=== PATIENT | male | born 1950 | race African-American/Black ===

== ENCOUNTER 2016-08-02 09:14 | Emergency (ER) | payer OTHER ==
[~2016-08-02] VITALS: Ht 175.3 cm; Wt 81.7 kg
[~2016-08-02 09:14] MED LIST: AVALIDE 300-121 EACH PO; FISH OIL 1,0001 EAC5 PO; JANUMET 50-1,01 EACH PO; KEFLEX500 MG PO; NORCO 5-325 TA1 EACH PO; PRAVASTATIN SOD20 MG PO; [UNRECOGNIZED DRUG - OTHER] SUBQ
[2016-08-02 09:15] VITALS: BP 144/85
[2016-08-02] MEDS ORDERED: NAPROSYN500 MG PO (09:41)
[2016-08-02] MEDS ORDERED: COLCHICINE0.6 MG PO (09:41)
[2016-08-02] MEDS ORDERED: INDOMETHACIN 5050 M1 PO (09:54)
== END 2016-08-02 09:59 | disposition home or self-care (01) ==
LOC: ER 09:14
DX: M10.9 Gout, unspecified (principal); R60.9 Edema, unspecified; F10.99 Alcohol use, unspecified with unspecified alcohol-induced disorder; I10 Essential (primary) hypertension; E78.00 Pure hypercholesterolemia, unspecified; E11.9 Type 2 diabetes mellitus without complications

== ENCOUNTER 2017-05-22 23:00 | Emergency (ER) | payer OTHER ==
[~2017-05-22] VITALS: Ht 175.3 cm; Wt 86.2 kg
[~2017-05-22 23:00] MED LIST changes: +COLCHICINE0.6 MG PO; +INDOMETHACIN 5050 M1 PO; +NAPROSYN500 MG PO
[2017-05-23] MEDS ORDERED: PREDNISONE 20 M20 MG PO (00:20)
[2017-05-23] MEDS ORDERED: CYCLOBENZAPRINE5 MG PO (00:20)
[2017-05-23] MEDS ORDERED: SENNA8.6 MG PO (00:20)
[2017-05-23] MEDS ORDERED: NORCO 5-325 TA1 EACH PO (00:28)
[2017-05-23 00:31] VITALS: BP 146/91
== END 2017-05-23 00:33 | disposition home or self-care (01) ==
LOC: ER 23:00
DX: M51.06 Intervertebral disc disorders with myelopathy, lumbar region (principal); I10 Essential (primary) hypertension; E78.00 Pure hypercholesterolemia, unspecified; E11.9 Type 2 diabetes mellitus without complications; F10.99 Alcohol use, unspecified with unspecified alcohol-induced disorder; W07.XXXA Fall from chair, initial encounter; Y93.89 Activity, other specified; Y92.59 Other trade areas as the place of occurrence of the external cause; Y99.8 Other external cause status